=== PATIENT | male | born 1980 | race Caucasian/White ===

== ENCOUNTER 2017-07-12 08:05 | Inpatient (IN) | payer OTHER ==
[2017-07-12] MEDS ORDERED: NACL 0.9% 3 ML SYG IV (10:00)
[2017-07-12] MEDS ORDERED: LORAZEPAM 1 MG TAB PO (10:00)
[2017-07-12] MEDS ORDERED: AL HYDROX/MG HYDROX/SIMETH 30 ML CUP PO (10:00)
[2017-07-12] MEDS ORDERED: LORAZEPAM 2 MG INJ IV ×2 (10:00)
[2017-07-12] MEDS ORDERED: ONDANSETRON 4 MG TAB PO (10:00)
[2017-07-12 11:46] LABS: ETHANOL < 10.0 mg/dl
[2017-07-12] MEDS: CHLORDIAZEPOXIDE 25 MG CAP PO ×2 (12:37→17:26)
[2017-07-12] MEDS: HYDROCODONE/APAP (5/325) TAB PO ×2 (13:41→22:18)
[2017-07-12] MEDS: ONDANSETRON 4 MG INJ IV ×2 (13:41→20:22)
[2017-07-12] MEDS: LORAZEPAM 2 MG INJ IV ×2 (13:42→20:22)
[2017-07-12] MEDS: METOCLOPRAMIDE 10 MG INJ IV (15:25)
[2017-07-12] MEDS: THIAMINE 200 MG INJ IM (15:26)
[2017-07-12] MEDS: SOD CHLORIDE 0.9% 1,000 ML IV (15:46)
[2017-07-12] MEDS: PANTOPRAZOLE (EC) 40 MG TAB PO (17:26)
[2017-07-13] MEDS: LORAZEPAM 2 MG INJ IV ×3 (00:45→15:52)
[2017-07-13] MEDS: CHLORDIAZEPOXIDE 25 MG CAP PO ×4 (00:45→18:05)
[2017-07-13] MEDS: SOD CHLORIDE 0.9% 1,000 ML IV ×2 (02:14→06:15)
[2017-07-13] MEDS: PANTOPRAZOLE (EC) 40 MG TAB PO ×2 (06:15→18:05)
[2017-07-13 07:08] LABS: ADD MAN DIFF? NO
[2017-07-13 07:22] LABS: BASOPHILS % 0.2 % (0.0-2.0); EOSINOPHILS % 0.5 % (0.0-7.0); HEMATOCRIT 44.9 % (42.0-52.0); HEMOGLOBIN 15.5 g/dl (14.0-18.0); LYMPHOCYTES # 0.9 10^3/ul (0.8-2.9); LYMPHOCYTES % 20.9 % (15.0-51.0); MEAN CORPUSCULAR HGB CONC 34.5 g/dl (32.0-37.0); MEAN CORPUSCULAR VOLUME 92.8 fl (82.0-101.0); MEAN PLATELET VOLUME 11.4 fl (7.4-10.4); MONOCYTE # 0.4 10^3/ul (0.3-0.9); MONOCYTES % 9.3 % (0.0-11.0); NEUTROPHILS % 68.6 % (39.0-77.0); PLATELET COUNT 143 10^3/UL (140-415); RED BLOOD COUNT 4.84 10^6/ul (4.70-6.10); RED CELL DISTRIBUTION WIDTH 12.3 % (11.5-14.5)
[2017-07-13 07:22] LABS: WHITE BLOOD COUNT 4.3 10^3/ul (4.8-10.8)
[2017-07-13 07:47] LABS: ANION GAP 13 (8-16); BLOOD UREA NITROGEN 11 mg/dl (7-20); CALCIUM 8.5 mg/dl (8.4-10.2); CARBON DIOXIDE 26 mmol/L (21-31); CHLORIDE 99 mmol/L (97-110); CREATININE 0.54 mg/dl (0.61-1.24); GLUCOSE 87 mg/dl (70-220); MAGNESIUM 1.8 mg/dl (1.7-2.5); PHOSPHORUS 2.9 mg/dl (2.5-4.9); POTASSIUM 3.3 mmol/L (3.5-5.1); SODIUM 135 mmol/L (135-144)
[2017-07-13] MEDS: ENOXAPARIN 40 MG/0.4 ML SYG SC (09:00)
[2017-07-13] MEDS: LORAZEPAM 1 MG TAB PO (09:35)
[2017-07-13] MEDS: POTASSIUM CHLORIDE (SR) 20 MEQ TAB PO (09:35)
[2017-07-13] MEDS: MULTIVITAMINS THERAPEUTIC TAB PO (09:35)
[2017-07-13] MEDS: METOCLOPRAMIDE 10 MG INJ IV ×2 (09:35→15:39)
[2017-07-13] MEDS: HYDROCODONE/APAP (5/325) TAB PO (09:36)
[2017-07-13] MEDS: FOLIC ACID 1 MG TAB PO (09:37)
[2017-07-13] MEDS: THIAMINE 200 MG INJ IM (09:37)
[2017-07-13] MEDS: ONDANSETRON 4 MG INJ IV ×2 (13:07→18:05)
== END 2017-07-13 19:15 | disposition home or self-care (01) | DRG 897 ==
LOC: PP2 08:05 → MS4 12:50
PROVIDERS: Internal Medicine
DX: F10.239 Alcohol dependence with withdrawal, unspecified (principal); K29.20 Alcoholic gastritis without bleeding
CPT/HCPCS: 80048; 80306; 83735; 84100; 85025

== ENCOUNTER 2017-09-11 10:42 | Emergency (ER) | payer OTHER ==
[2017-09-11] MEDS: ONDANSETRON (ODT) 4 MG TAB ODT (11:08)
[2017-09-11] MEDS: LORAZEPAM 1 MG TAB PO (11:09)
== END 2017-09-11 11:30 | disposition home or self-care (01) ==
LOC: FTE 10:42
DX: F10.230 Alcohol dependence with withdrawal, uncomplicated (principal)
CPT/HCPCS: 99284; Z7502

== ENCOUNTER 2017-09-15 08:49 | Emergency (ER) | payer OTHER ==
[2017-09-15] MEDS: LORAZEPAM 1 MG TAB PO ×2 (10:22→19:12)
[2017-09-15 10:23] LABS: ADD MAN DIFF? NO
[2017-09-15 10:37] LABS: WHITE BLOOD COUNT 6.4 10^3/ul (4.8-10.8)
[2017-09-15 10:37] LABS: BASOPHILS % 0.2 % (0.0-2.0); EOSINOPHILS % 0.2 % (0.0-7.0); HEMATOCRIT 52.7 % (42.0-52.0); HEMOGLOBIN 17.8 g/dl (14.0-18.0); LYMPHOCYTES # 2.9 10^3/ul (0.8-2.9); LYMPHOCYTES % 44.9 % (15.0-51.0); MEAN CORPUSCULAR HEMOGLOBIN 31.2 pg (29.0-33.0); MEAN CORPUSCULAR HGB CONC 33.8 g/dl (32.0-37.0); MEAN CORPUSCULAR VOLUME 92.3 fl (82.0-101.0); MONOCYTE # 0.4 10^3/ul (0.3-0.9); MONOCYTES % 5.9 % (0.0-11.0); NEUTROPHIL # 3.1 10^3/ul (1.6-7.5); NEUTROPHILS % 48.6 % (39.0-77.0); PLATELET COUNT 255 10^3/UL (140-415); RED BLOOD COUNT 5.71 10^6/ul (4.70-6.10); RED CELL DISTRIBUTION WIDTH 13.3 % (11.5-14.5)
[2017-09-15 10:52] LABS: ALANINE AMINOTRANSFERASE 52 IU/L (13-69); ALBUMIN 4.9 g/dl (3.3-4.9); ALBUMIN/GLOBULIN RATIO 1.63; ALKALINE PHOSPHATASE 81 IU/L (42-121); ANION GAP 18 (8-16); ASPARTATE AMINO TRANSFERASE 34 IU/L (15-46); BILIRUBIN,INDIRECT 0.9 mg/dl (0-1.1); BILIRUBIN,TOTAL 0.9 mg/dl (0.2-1.3); BLOOD UREA NITROGEN 5 mg/dl (7-20); CARBON DIOXIDE 24 mmol/L (21-31); CHLORIDE 105 mmol/L (97-110); CREATININE 0.55 mg/dl (0.61-1.24); GLUCOSE 114 mg/dl (70-220); POTASSIUM 4.1 mmol/L (3.5-5.1); SODIUM 143 mmol/L (135-144); TOTAL PROTEIN 7.9 g/dl (6.1-8.1)
[2017-09-15 10:54] LABS: ACETAMINOPHEN < 10.0 ug/ml (10.0-30.0); SALICYLATE < 1.0 mg/dl (5.0-30.0)
[2017-09-15 11:02] LABS: AMPHETAMINE/METHAMPHETAMINE Negative (NEGATIVE); BARBITURATES Negative (NEGATIVE); BENZODIAZEPINES Positive (NEGATIVE); CANNABINOIDS Positive (NEGATIVE); COCAINE Negative (NEGATIVE); OPIATES Negative (NEGATIVE)
[2017-09-15] MEDS: LORAZEPAM 2 MG INJ IM (12:09)
[2017-09-15] MEDS: LORAZEPAM 2 MG INJ IV (14:26)
== END 2017-09-15 20:50 | disposition home or self-care (01) ==
LOC: E/R 20:50
DX: F10.120 Alcohol abuse with intoxication, uncomplicated (principal); R45.851 Suicidal ideations; F32.9 Major depressive disorder, single episode, unspecified
CPT/HCPCS: 36415; 80053; 80307; 85025; 96372; 96374; 99284-25

== ENCOUNTER 2017-10-09 04:09 | Emergency (ER) | payer OTHER ==
[2017-10-09] MEDS: LORAZEPAM 1 MG TAB PO (06:12)
== END 2017-10-09 06:51 | disposition home or self-care (01) ==
LOC: E/R 04:09
DX: F10.10 Alcohol abuse, uncomplicated (principal); R40.2142 Coma scale, eyes open, spontaneous, at arrival to emergency department; R40.2362 Coma scale, best motor response, obeys commands, at arrival to emergency department; R40.2252 Coma scale, best verbal response, oriented, at arrival to emergency department
CPT/HCPCS: 99284; Z7502

== ENCOUNTER 2017-10-30 03:17 | Emergency (ER) | payer OTHER | END 2017-10-30 04:12 | disposition home or self-care (01) | LOC: FTE 03:17 | DX: F41.9 Anxiety disorder, unspecified (principal) | CPT/HCPCS: 99283; Z7502 ==

== ENCOUNTER 2017-11-29 14:10 | Emergency (ER) | payer OTHER ==
[2017-11-29] MEDS: LORAZEPAM 1 MG TAB PO (16:27)
== END 2017-11-29 16:37 | disposition home or self-care (01) ==
LOC: E/R 14:10
DX: F10.230 Alcohol dependence with withdrawal, uncomplicated (principal)
CPT/HCPCS: 99283; Z7502

== ENCOUNTER 2017-12-15 19:36 | Emergency (ER) | payer SELFPAY, OTHER | END 2017-12-15 21:57 | disposition left against medical advice (07) | LOC: FTE 21:57 | DX: Z53.21 Procedure and treatment not carried out due to patient leaving prior to being seen by health care provider (principal) ==

== ENCOUNTER 2017-12-16 04:03 | Emergency (ER) | payer OTHER ==
[2017-12-16 04:40] LABS: ADD MAN DIFF? NO
[2017-12-16 04:41] LABS: BASOPHILS % 0.2 % (0.0-2.0); EOSINOPHILS % 0.2 % (0.0-7.0); HEMATOCRIT 47.6 % (42.0-52.0); HEMOGLOBIN 16.1 g/dl (14.0-18.0); LYMPHOCYTES # 1.6 10^3/ul (0.8-2.9); LYMPHOCYTES % 28.6 % (15.0-51.0); MEAN CORPUSCULAR HEMOGLOBIN 32.9 pg (29.0-33.0); MEAN CORPUSCULAR HGB CONC 33.8 g/dl (32.0-37.0); MEAN CORPUSCULAR VOLUME 97.1 fl (82.0-101.0); MEAN PLATELET VOLUME 10.3 fl (7.4-10.4); MONOCYTE # 0.3 10^3/ul (0.3-0.9); MONOCYTES % 6.2 % (0.0-11.0); NEUTROPHIL # 3.5 10^3/ul (1.6-7.5); NEUTROPHILS % 64.6 % (39.0-77.0); PLATELET COUNT 207 10^3/UL (140-415); RED CELL DISTRIBUTION WIDTH 12.5 % (11.5-14.5)
[2017-12-16 04:41] LABS: WHITE BLOOD COUNT 5.5 10^3/ul (4.8-10.8)
[2017-12-16] MEDS: ONDANSETRON 4 MG INJ IV (04:42)
[2017-12-16] MEDS: SOD CHLORIDE 0.9% 1,000 ML IV (04:42)
[2017-12-16] MEDS: morphine 4 MG/ML VIAL IV (04:42)
[2017-12-16 04:58] LABS: ALANINE AMINOTRANSFERASE 71 IU/L (13-69); ALBUMIN 4.5 g/dl (3.3-4.9); ALKALINE PHOSPHATASE 55 IU/L (42-121); ANION GAP 15 (8-16); ASPARTATE AMINO TRANSFERASE 94 IU/L (15-46); BILIRUBIN,INDIRECT 1.4 mg/dl (0-1.1); BILIRUBIN,TOTAL 1.4 mg/dl (0.2-1.3); BLOOD UREA NITROGEN 5 mg/dl (7-20); CALCIUM 8.5 mg/dl (8.4-10.2); CARBON DIOXIDE 27 mmol/L (21-31); CHLORIDE 104 mmol/L (97-110); CREATININE 0.48 mg/dl (0.61-1.24); GLUCOSE 95 mg/dl (70-220); LIPASE 108 U/L (23-300); POTASSIUM 4.1 mmol/L (3.5-5.1); SODIUM 142 mmol/L (135-144); TOTAL PROTEIN 7.5 g/dl (6.1-8.1)
[2017-12-16] MEDS ORDERED: LORAZEPAM 2 MG INJ (05:01)
[2017-12-16] MEDS: LORAZEPAM 2 MG INJ IV (05:05)
== END 2017-12-16 07:45 | disposition home or self-care (01) ==
LOC: E/R 04:03
DX: R10.13 Epigastric pain (principal)
CPT/HCPCS: 36415; 76705; 80053; 83690; 85025; 96374; 96375; 99285-25

== ENCOUNTER 2018-03-01 19:42 | Emergency (ER) | payer SELFPAY, OTHER | END 2018-03-01 20:30 | disposition left against medical advice (07) | LOC: E/R 19:42 | DX: Z53.21 Procedure and treatment not carried out due to patient leaving prior to being seen by health care provider (principal) ==

== ENCOUNTER 2018-03-02 08:23 | Emergency (ER) | payer OTHER ==
[2018-03-02] MEDS: SOD CHLORIDE 0.9% 1,000 ML IV (09:26)
[2018-03-02] MEDS: LORAZEPAM 2 MG INJ IV (09:36)
[2018-03-02 09:45] LABS: ADD MAN DIFF? NO
[2018-03-02 09:48] LABS: WHITE BLOOD COUNT 4.4 10^3/ul (4.8-10.8)
[2018-03-02 09:48] LABS: BASOPHILS % 0.5 % (0.0-2.0); EOSINOPHILS % 0.2 % (0.0-7.0); HEMATOCRIT 47.6 % (42.0-52.0); LYMPHOCYTES # 1.1 10^3/ul (0.8-2.9); LYMPHOCYTES % 23.9 % (15.0-51.0); MEAN CORPUSCULAR HEMOGLOBIN 33.1 pg (29.0-33.0); MEAN CORPUSCULAR HGB CONC 33.6 g/dl (32.0-37.0); MEAN CORPUSCULAR VOLUME 98.6 fl (82.0-101.0); MONOCYTE # 0.3 10^3/ul (0.3-0.9); NEUTROPHILS % 68.2 % (39.0-77.0); PLATELET COUNT 242 10^3/UL (140-415); RED BLOOD COUNT 4.83 10^6/ul (4.70-6.10); RED CELL DISTRIBUTION WIDTH 12.6 % (11.5-14.5)
[2018-03-02 09:49] LABS: ADD UMIC NO; UR ASCORBIC ACID NEGATIVE (NEGATIVE); UR BILIRUBIN (Dip) NEGATIVE (NEGATIVE); UR BLOOD (Dip) NEGATIVE (NEGATIVE); UR CLARITY CLEAR (CLEAR); UR COLOR YELLOW (YELLOW); UR GLUCOSE (Dip) NEGATIVE (NEGATIVE); UR KETONES (Dip) 2+ mg/dL (NEGATIVE); UR LEUKOCYTE ESTERASE (Dip) NEGATIVE Leu/ul (NEGATIVE); UR NITRITE (Dip) NEGATIVE (NEGATIVE); UR SPECIFIC GRAVITY (Dip) 1.014 (1.003-1.030); UR TOTAL PROTEIN (Dip) NEGATIVE (NEGATIVE); UR UROBILINOGEN (Dip) 1+ mg/dL (NEGATIVE)
[2018-03-02 10:17] LABS: ALANINE AMINOTRANSFERASE 42 IU/L (13-69); ALBUMIN 4.6 g/dl (3.3-4.9); ALBUMIN/GLOBULIN RATIO 1.48; ALKALINE PHOSPHATASE 73 IU/L (42-121); ANION GAP 18 (5-13); ASPARTATE AMINO TRANSFERASE 46 IU/L (15-46); BILIRUBIN,INDIRECT 1.1 mg/dl (0-1.1); BILIRUBIN,TOTAL 1.1 mg/dl (0.2-1.3); BLOOD UREA NITROGEN 4 mg/dl (7-20); CALCIUM 8.5 mg/dl (8.4-10.2); CARBON DIOXIDE 22 mmol/L (21-31); CHLORIDE 101 mmol/L (97-110); CREATININE 0.46 mg/dl (0.61-1.24); Estimated GFR > 60 mL/min (>60); GLUCOSE 98 mg/dl (70-220); LIPASE 70 U/L (23-300); POTASSIUM 3.4 mmol/L (3.5-5.1); SODIUM 141 mmol/L (135-144); TOTAL PROTEIN 7.7 g/dl (6.1-8.1)
== END 2018-03-02 11:01 | disposition home or self-care (01) ==
LOC: E/R 08:23
DX: F10.230 Alcohol dependence with withdrawal, uncomplicated (principal); R10.11 Right upper quadrant pain
CPT/HCPCS: 36415; 80053; 81003; 83690; 85025; 93005; 96374; 99284-25

== ENCOUNTER 2018-03-03 10:05 | Emergency (ER) | payer OTHER ==
[2018-03-03] MEDS: LORAZEPAM 1 MG TAB PO (10:55)
[2018-03-03] MEDS: CHLORDIAZEPOXIDE 25 MG CAP PO (11:02)
[2018-03-03] MEDS: LIDOCAINE/MYLANTA 40 ML BTL PO (11:02)
== END 2018-03-03 11:34 | disposition home or self-care (01) ==
LOC: E/R 10:05
DX: F10.239 Alcohol dependence with withdrawal, unspecified (principal)
CPT/HCPCS: 87400; 93005; 99284-25

== ENCOUNTER 2018-05-01 05:47 | Emergency (ER) | payer OTHER ==
[2018-05-01] MEDS: LORAZEPAM 1 MG TAB PO (06:38)
== END 2018-05-01 07:47 | disposition left against medical advice (07) ==
LOC: FTE 05:47
DX: F41.9 Anxiety disorder, unspecified (principal); F10.10 Alcohol abuse, uncomplicated; R06.02 Shortness of breath
CPT/HCPCS: 93005; 99283-25; Z7502

== ENCOUNTER 2018-05-04 12:02 | Emergency (ER) | payer OTHER ==
[2018-05-04 13:11] LABS: ADD MAN DIFF? NO
[2018-05-04 13:13] LABS: WHITE BLOOD COUNT 5.7 10^3/ul (4.8-10.8)
[2018-05-04 13:13] LABS: BASOPHILS % 0.2 % (0.0-2.0); HEMATOCRIT 49.5 % (42.0-52.0); HEMOGLOBIN 16.9 g/dl (14.0-18.0); LYMPHOCYTES # 1.3 10^3/ul (0.8-2.9); MEAN CORPUSCULAR HEMOGLOBIN 33.1 pg (29.0-33.0); MEAN CORPUSCULAR HGB CONC 34.1 g/dl (32.0-37.0); MEAN CORPUSCULAR VOLUME 96.9 fl (82.0-101.0); MEAN PLATELET VOLUME 10.4 fl (7.4-10.4); MONOCYTE # 0.3 10^3/ul (0.3-0.9); MONOCYTES % 4.8 % (0.0-11.0); NEUTROPHIL # 4.1 10^3/ul (1.6-7.5); NEUTROPHILS % 71.6 % (39.0-77.0); PLATELET COUNT 234 10^3/UL (140-415); RED BLOOD COUNT 5.11 10^6/ul (4.70-6.10); RED CELL DISTRIBUTION WIDTH 12.7 % (11.5-14.5)
[2018-05-04] MEDS: ONDANSETRON 4 MG INJ IV (13:18)
[2018-05-04] MEDS: morphine 2 MG INJ IV (13:19)
[2018-05-04 13:27] LABS: URINE BLOOD (Dip) POC Trace-intact (NEGATIVE); URINE GLUCOSE (Dip) POC Negative (NEGATIVE); URINE KETONES (Dip) POC 3+ (NEGATIVE); URINE LEUKOCYTE EST (Dip) POC Negative (NEGATIVE); URINE NITRITE (Dip) POC Negative (NEGATIVE); URINE TOTAL PROTEIN POC 1+ (NEGATIVE)
[2018-05-04 13:31] LABS: ALANINE AMINOTRANSFERASE 47 IU/L (13-69); ALBUMIN 4.9 g/dl (3.3-4.9); ALBUMIN/GLOBULIN RATIO 1.44; ALKALINE PHOSPHATASE 75 IU/L (42-121); ANION GAP 13 (5-13); ASPARTATE AMINO TRANSFERASE 43 IU/L (15-46); BILIRUBIN,INDIRECT 0.5 mg/dl (0-1.1); BILIRUBIN,TOTAL 0.5 mg/dl (0.2-1.3); BLOOD UREA NITROGEN 8 mg/dl (7-20); CALCIUM 9.4 mg/dl (8.4-10.2); CARBON DIOXIDE 24 mmol/L (21-31); CHLORIDE 103 mmol/L (97-110); CREATININE 0.52 mg/dl (0.61-1.24); Estimated GFR > 60 mL/min (>60); GLUCOSE 107 mg/dl (70-220); LIPASE 84 U/L (23-300); POTASSIUM 3.7 mmol/L (3.5-5.1); SODIUM 140 mmol/L (135-144); TOTAL PROTEIN 8.3 g/dl (6.1-8.1)
[2018-05-04] MEDS: SOD CHLORIDE 0.9% 1,000 ML IV (13:31)
[2018-05-04 13:32] LABS: INR 0.87; PROTIME 11.9 Sec (11.9-14.9); PT RATIO 0.9
[2018-05-04 13:33] LABS: PARTIAL THROMBOPLASTIN TIME 27.8 Sec (23.0-35.0)
[2018-05-04] MEDS ORDERED: LORAZEPAM 2 MG INJ (13:48)
[2018-05-04] MEDS: LORAZEPAM 2 MG INJ IV ×2 (14:17→15:44)
== END 2018-05-04 16:38 | disposition home or self-care (01) ==
LOC: E/R 12:02
DX: R10.11 Right upper quadrant pain (principal); F10.10 Alcohol abuse, uncomplicated
CPT/HCPCS: 36415; 80053; 80307; 81003; 83690; 85025; 85610; 85730; 96374; 96375; 96376; 99284-25

== ENCOUNTER 2018-05-28 05:33 | Emergency (ER) | payer OTHER ==
[2018-05-28 07:11] LABS: ADD MAN DIFF? NO
[2018-05-28 07:13] LABS: WHITE BLOOD COUNT 6.6 10^3/ul (4.8-10.8)
[2018-05-28 07:13] LABS: BASOPHILS % 0.3 % (0.0-2.0); HEMOGLOBIN 18.4 g/dl (14.0-18.0); LYMPHOCYTES # 1.9 10^3/ul (0.8-2.9); LYMPHOCYTES % 29.1 % (15.0-51.0); MEAN CORPUSCULAR HEMOGLOBIN 33.2 pg (29.0-33.0); MEAN CORPUSCULAR HGB CONC 34.1 g/dl (32.0-37.0); MEAN CORPUSCULAR VOLUME 97.3 fl (82.0-101.0); MEAN PLATELET VOLUME 11.1 fl (7.4-10.4); MONOCYTE # 0.4 10^3/ul (0.3-0.9); MONOCYTES % 6.7 % (0.0-11.0); NEUTROPHIL # 4.2 10^3/ul (1.6-7.5); NEUTROPHILS % 63.6 % (39.0-77.0); PLATELET COUNT 267 10^3/UL (140-415); RED BLOOD COUNT 5.55 10^6/ul (4.70-6.10); RED CELL DISTRIBUTION WIDTH 12.7 % (11.5-14.5)
[2018-05-28 07:34] LABS: ALANINE AMINOTRANSFERASE 46 IU/L (13-69); ALBUMIN 5.1 g/dl (3.3-4.9); ALBUMIN/GLOBULIN RATIO 1.45; ALKALINE PHOSPHATASE 76 IU/L (42-121); ANION GAP 21 (5-13); ASPARTATE AMINO TRANSFERASE 43 IU/L (15-46); BILIRUBIN,INDIRECT 0.7 mg/dl (0-1.1); BILIRUBIN,TOTAL 0.7 mg/dl (0.2-1.3); BLOOD UREA NITROGEN 12 mg/dl (7-20); CALCIUM 9.4 mg/dl (8.4-10.2); CARBON DIOXIDE 25 mmol/L (21-31); CHLORIDE 99 mmol/L (97-110); CREATININE 0.67 mg/dl (0.61-1.24); Estimated GFR > 60 mL/min (>60); GLUCOSE 96 mg/dl (70-220); LIPASE 68 U/L (23-300); POTASSIUM 4.2 mmol/L (3.5-5.1); SODIUM 145 mmol/L (135-144); TOTAL PROTEIN 8.6 g/dl (6.1-8.1)
[2018-05-28] MEDS: SOD CHLORIDE 0.9% 1,000 ML IV (07:41)
[2018-05-28] MEDS: ONDANSETRON 4 MG INJ IV (07:42)
[2018-05-28] MEDS: morphine 4 MG/ML VIAL IV (07:42)
[2018-05-28] MEDS: LORAZEPAM 1 MG TAB PO (08:06)
[2018-05-28 08:07] LABS: ADD UMIC YES; UR ASCORBIC ACID NEGATIVE (NEGATIVE); UR BILIRUBIN (Dip) NEGATIVE (NEGATIVE); UR BLOOD (Dip) NEGATIVE (NEGATIVE); UR CLARITY CLEAR (CLEAR); UR COLOR YELLOW (YELLOW); UR GLUCOSE (Dip) NEGATIVE (NEGATIVE); UR KETONES (Dip) 2+ mg/dL (NEGATIVE); UR LEUKOCYTE ESTERASE (Dip) NEGATIVE Leu/ul (NEGATIVE); UR NITRITE (Dip) NEGATIVE (NEGATIVE); UR RBC 1 /HPF (0-5); UR TOTAL PROTEIN (Dip) 1+ mg/dl (NEGATIVE); UR UROBILINOGEN (Dip) NEGATIVE (NEGATIVE); UR WBC 0 /HPF (0-5)
[2018-05-28] MEDS: morphine 2 MG INJ IV (08:26)
== END 2018-05-28 08:43 | disposition home or self-care (01) ==
LOC: FTE 08:43
DX: F10.10 Alcohol abuse, uncomplicated (principal)
CPT/HCPCS: 36415; 76705; 80053; 81001; 83690; 85025; 96361; 96374; 96375; 96376; 99285-25

== ENCOUNTER 2018-05-30 01:26 | Emergency (ER) | payer SELFPAY, OTHER | END 2018-05-30 02:51 | disposition left against medical advice (07) | LOC: FTE 01:26 | DX: Z53.21 Procedure and treatment not carried out due to patient leaving prior to being seen by health care provider (principal) ==

== ENCOUNTER 2018-07-05 04:03 | Emergency (ER) | payer OTHER ==
[2018-07-05 06:41] LABS: ADD MAN DIFF? NO
[2018-07-05 06:50] LABS: WHITE BLOOD COUNT 6.3 10^3/ul (4.8-10.8)
[2018-07-05 06:50] LABS: BASOPHILS % 0.2 % (0.0-2.0); EOSINOPHILS % 0.2 % (0.0-7.0); HEMATOCRIT 52.2 % (42.0-52.0); LYMPHOCYTES # 2.9 10^3/ul (0.8-2.9); LYMPHOCYTES % 46.9 % (15.0-51.0); MEAN CORPUSCULAR HEMOGLOBIN 33.1 pg (29.0-33.0); MEAN CORPUSCULAR HGB CONC 34.5 g/dl (32.0-37.0); MEAN PLATELET VOLUME 10.7 fl (7.4-10.4); MONOCYTE # 0.5 10^3/ul (0.3-0.9); MONOCYTES % 8.3 % (0.0-11.0); NEUTROPHIL # 2.8 10^3/ul (1.6-7.5); NEUTROPHILS % 44.1 % (39.0-77.0); PLATELET COUNT 236 10^3/UL (140-415); RED BLOOD COUNT 5.44 10^6/ul (4.70-6.10); RED CELL DISTRIBUTION WIDTH 12.2 % (11.5-14.5)
[2018-07-05] MEDS: LORAZEPAM 1 MG TAB PO (06:50)
[2018-07-05] MEDS: KETOROLAC 15 MG INJ IV (06:50)
[2018-07-05] MEDS: SOD CHLORIDE 0.9% 1,000 ML IV (06:50)
[2018-07-05] MEDS: ONDANSETRON 4 MG INJ IV (06:50)
[2018-07-05 06:53] LABS: ADD UMIC YES; UR ASCORBIC ACID 40 mg/dL (NEGATIVE); UR BACTERIA FEW /HPF (NONE SEEN); UR BILIRUBIN (Dip) 1+ mg/dL (NEGATIVE); UR BLOOD (Dip) NEGATIVE (NEGATIVE); UR CLARITY CLEAR (CLEAR); UR COLOR AMBER (YELLOW); UR GLUCOSE (Dip) NEGATIVE (NEGATIVE); UR KETONES (Dip) 2+ mg/dL (NEGATIVE); UR LEUKOCYTE ESTERASE (Dip) TRACE Leu/ul (NEGATIVE); UR MUCUS MANY /HPF (NONE SEEN); UR NITRITE (Dip) NEGATIVE (NEGATIVE); UR RBC 3 /HPF (0-5); UR SPECIFIC GRAVITY (Dip) 1.032 (1.003-1.030); UR TOTAL PROTEIN (Dip) 1+ mg/dl (NEGATIVE); UR UROBILINOGEN (Dip) 2+ mg/dL (NEGATIVE); UR WBC 1 /HPF (0-5)
[2018-07-05 07:00] LABS: LIPASE 115 U/L (23-300)
[2018-07-05 07:02] LABS: ALANINE AMINOTRANSFERASE 44 IU/L (13-69); ALBUMIN 4.9 g/dl (3.3-4.9); ALBUMIN/GLOBULIN RATIO 1.36; ALKALINE PHOSPHATASE 80 IU/L (42-121); ANION GAP 16 (5-13); ASPARTATE AMINO TRANSFERASE 34 IU/L (15-46); BILIRUBIN,INDIRECT 0.4 mg/dl (0-1.1); BILIRUBIN,TOTAL 0.4 mg/dl (0.2-1.3); BLOOD UREA NITROGEN 8 mg/dl (7-20); CALCIUM 9.8 mg/dl (8.4-10.2); CARBON DIOXIDE 25 mmol/L (21-31); CHLORIDE 104 mmol/L (97-110); CREATININE 0.62 mg/dl (0.61-1.24); Estimated GFR > 60 mL/min (>60); GLUCOSE 104 mg/dl (70-220); POTASSIUM 3.7 mmol/L (3.5-5.1); SODIUM 145 mmol/L (135-144); TOTAL PROTEIN 8.5 g/dl (6.1-8.1)
[2018-07-05 07:03] LABS: ACETAMINOPHEN < 10.0 ug/ml (10.0-30.0)
[2018-07-05] MEDS: OXYCODONE/ACETAMINOPHEN (5/325) TAB PO (07:30)
[2018-07-05 07:54] LABS: AMPHETAMINE/METHAMPHETAMINE Negative (NEGATIVE); BARBITURATES Negative (NEGATIVE); BENZODIAZEPINES Positive (NEGATIVE); CANNABINOIDS Positive (NEGATIVE); COCAINE Negative (NEGATIVE); OPIATES Negative (NEGATIVE)
[2018-07-05 11:04] LABS: SALICYLATE < 1.0 mg/dl (5.0-30.0)
== END 2018-07-05 09:02 | disposition home or self-care (01) ==
LOC: E/R 04:03
DX: F10.230 Alcohol dependence with withdrawal, uncomplicated (principal); R10.13 Epigastric pain
CPT/HCPCS: 36415; 80053; 80307; 81001; 83690; 85025; 93005; 96374; 96375; 99284-25

== ENCOUNTER 2018-07-07 05:15 | Emergency (ER) | payer OTHER ==
[2018-07-07] MEDS: ONDANSETRON 4 MG INJ IV (06:41)
[2018-07-07] MEDS: SOD CHLORIDE 0.9% 1,000 ML IV (06:41)
[2018-07-07] MEDS: LORAZEPAM 2 MG INJ IV (06:42)
[2018-07-07] MEDS: morphine 4 MG/ML VIAL IV (06:42)
[2018-07-07] MEDS: KETOROLAC 30 MG INJ IV (06:42)
[2018-07-07 06:53] LABS: ADD MAN DIFF? NO
[2018-07-07 06:56] LABS: BASOPHILS % 0.4 % (0.0-2.0); HEMOGLOBIN 17.9 g/dl (14.0-18.0); LYMPHOCYTES # 3.1 10^3/ul (0.8-2.9); LYMPHOCYTES % 54.6 % (15.0-51.0); MEAN CORPUSCULAR HEMOGLOBIN 33.3 pg (29.0-33.0); MEAN CORPUSCULAR HGB CONC 34.4 g/dl (32.0-37.0); MEAN CORPUSCULAR VOLUME 96.8 fl (82.0-101.0); MEAN PLATELET VOLUME 10.4 fl (7.4-10.4); MONOCYTE # 0.4 10^3/ul (0.3-0.9); MONOCYTES % 6.9 % (0.0-11.0); NEUTROPHIL # 2.2 10^3/ul (1.6-7.5); NEUTROPHILS % 37.7 % (39.0-77.0); PLATELET COUNT 242 10^3/UL (140-415); RED BLOOD COUNT 5.37 10^6/ul (4.70-6.10); RED CELL DISTRIBUTION WIDTH 12.2 % (11.5-14.5)
[2018-07-07 06:56] LABS: WHITE BLOOD COUNT 5.7 10^3/ul (4.8-10.8)
[2018-07-07 07:04] LABS: ADD UMIC YES; UR ASCORBIC ACID NEGATIVE (NEGATIVE); UR BILIRUBIN (Dip) NEGATIVE (NEGATIVE); UR BLOOD (Dip) 1+ mg/dL (NEGATIVE); UR CLARITY CLEAR (CLEAR); UR COLOR YELLOW (YELLOW); UR GLUCOSE (Dip) NEGATIVE (NEGATIVE); UR KETONES (Dip) TRACE mg/dL (NEGATIVE); UR LEUKOCYTE ESTERASE (Dip) NEGATIVE Leu/ul (NEGATIVE); UR MUCUS MODERATE /HPF (NONE SEEN); UR NITRITE (Dip) NEGATIVE (NEGATIVE); UR RBC 1 /HPF (0-5); UR SPECIFIC GRAVITY (Dip) 1.019 (1.003-1.030); UR TOTAL PROTEIN (Dip) NEGATIVE (NEGATIVE); UR UROBILINOGEN (Dip) NEGATIVE (NEGATIVE); UR WBC 0 /HPF (0-5)
[2018-07-07] MEDS: morphine 2 MG INJ IV (07:08)
[2018-07-07 07:11] LABS: ALANINE AMINOTRANSFERASE 49 IU/L (13-69); ALBUMIN 4.9 g/dl (3.3-4.9); ALBUMIN/GLOBULIN RATIO 1.58; ALKALINE PHOSPHATASE 69 IU/L (42-121); ANION GAP 15 (5-13); ASPARTATE AMINO TRANSFERASE 37 IU/L (15-46); BILIRUBIN,INDIRECT 0.4 mg/dl (0-1.1); BILIRUBIN,TOTAL 0.4 mg/dl (0.2-1.3); BLOOD UREA NITROGEN 6 mg/dl (7-20); CALCIUM 9.4 mg/dl (8.4-10.2); CARBON DIOXIDE 28 mmol/L (21-31); CHLORIDE 103 mmol/L (97-110); CREATININE 0.61 mg/dl (0.61-1.24); Estimated GFR > 60 mL/min (>60); GLUCOSE 109 mg/dl (70-220); LIPASE 91 U/L (23-300); POTASSIUM 3.9 mmol/L (3.5-5.1); SODIUM 146 mmol/L (135-144)
[2018-07-07 08:19] LABS: LIPASE 120 U/L (23-300)
[2018-07-07 09:35] LABS: TROPONIN-I < 0.012 ng/ml (0.000-0.120)
[2018-07-07] MEDS: LORAZEPAM 0.5 MG TAB PO (09:52)
== END 2018-07-07 09:55 | disposition home or self-care (01) ==
LOC: FTE 05:15
DX: R10.13 Epigastric pain (principal); Z87.891 Personal history of nicotine dependence
CPT/HCPCS: 36415; 76705; 80053; 81001; 83690; 84484; 85025; 93005; 96361; 96374; 96375; 99285-25

== ENCOUNTER 2018-09-05 12:12 | Emergency (ER) | payer OTHER ==
[2018-09-05 16:49] LABS: ADD MAN DIFF? NO
[2018-09-05 16:54] LABS: BASOPHILS % 0.2 % (0.0-2.0); HEMATOCRIT 48.8 % (42.0-52.0); HEMOGLOBIN 17.1 g/dl (14.0-18.0); MEAN CORPUSCULAR HEMOGLOBIN 33.6 pg (29.0-33.0); MEAN CORPUSCULAR VOLUME 95.9 fl (82.0-101.0); MEAN PLATELET VOLUME 10.2 fl (7.4-10.4); MONOCYTE # 0.5 10^3/ul (0.3-0.9); MONOCYTES % 8.8 % (0.0-11.0); NEUTROPHIL # 3.9 10^3/ul (1.6-7.5); NEUTROPHILS % 72.6 % (39.0-77.0); PLATELET COUNT 243 10^3/UL (140-415); RED BLOOD COUNT 5.09 10^6/ul (4.70-6.10); RED CELL DISTRIBUTION WIDTH 12.2 % (11.5-14.5)
[2018-09-05 16:54] LABS: WHITE BLOOD COUNT 5.4 10^3/ul (4.8-10.8)
[2018-09-05] MEDS: SOD CHLORIDE 0.9% 1,000 ML IV (17:04)
[2018-09-05] MEDS: morphine 4 MG/ML VIAL IV (17:04)
[2018-09-05] MEDS: FAMOTIDINE 20 MG INJ IV (17:04)
[2018-09-05] MEDS: ONDANSETRON 4 MG INJ IV (17:04)
[2018-09-05 17:11] LABS: ALANINE AMINOTRANSFERASE 57 IU/L (13-69); ALBUMIN 4.6 g/dl (3.3-4.9); ALBUMIN/GLOBULIN RATIO 1.39; ALKALINE PHOSPHATASE 63 IU/L (42-121); ANION GAP 17 (5-13); ASPARTATE AMINO TRANSFERASE 57 IU/L (15-46); BILIRUBIN,INDIRECT 0.7 mg/dl (0-1.1); BILIRUBIN,TOTAL 0.7 mg/dl (0.2-1.3); BLOOD UREA NITROGEN 10 mg/dl (7-20); CALCIUM 8.7 mg/dl (8.4-10.2); CARBON DIOXIDE 26 mmol/L (21-31); CHLORIDE 102 mmol/L (97-110); CREATININE 0.73 mg/dl (0.61-1.24); Estimated GFR > 60 mL/min (>60); GLUCOSE 133 mg/dl (70-220); LIPASE 142 U/L (23-300); POTASSIUM 3.4 mmol/L (3.5-5.1); SODIUM 145 mmol/L (135-144); TOTAL PROTEIN 7.9 g/dl (6.1-8.1)
[2018-09-05 17:22] LABS: TROPONIN-I < 0.012 ng/ml (0.000-0.120)
[2018-09-05] MEDS: LORAZEPAM 2 MG INJ IV (19:35)
== END 2018-09-05 21:43 | disposition home or self-care (01) ==
LOC: E/R 12:12
DX: K29.20 Alcoholic gastritis without bleeding (principal); F10.10 Alcohol abuse, uncomplicated
CPT/HCPCS: 36415; 71045; 76705; 80053; 83690; 84484; 85025; 93005; 96374; 96375; 99285-25

== ENCOUNTER 2018-09-11 11:12 | Emergency (ER) | payer OTHER ==
[2018-09-11 12:48] LABS: ADD MAN DIFF? NO
[2018-09-11 12:55] LABS: BASOPHILS % 0.3 % (0.0-2.0); HEMATOCRIT 46.4 % (42.0-52.0); LYMPHOCYTES % 30.7 % (15.0-51.0); MEAN CORPUSCULAR HEMOGLOBIN 33.8 pg (29.0-33.0); MEAN CORPUSCULAR HGB CONC 34.5 g/dl (32.0-37.0); MEAN CORPUSCULAR VOLUME 98.1 fl (82.0-101.0); MEAN PLATELET VOLUME 9.8 fl (7.4-10.4); MONOCYTE # 0.3 10^3/ul (0.3-0.9); MONOCYTES % 9.4 % (0.0-11.0); NEUTROPHIL # 1.9 10^3/ul (1.6-7.5); PLATELET COUNT 149 10^3/UL (140-415); RED BLOOD COUNT 4.73 10^6/ul (4.70-6.10); RED CELL DISTRIBUTION WIDTH 12.8 % (11.5-14.5)
[2018-09-11 12:55] LABS: WHITE BLOOD COUNT 3.3 10^3/ul (4.8-10.8)
[2018-09-11] MEDS: LORAZEPAM 2 MG INJ IV (13:00)
[2018-09-11] MEDS: SOD CHLORIDE 0.9% 1,000 ML IV (13:00)
[2018-09-11 13:12] LABS: ALANINE AMINOTRANSFERASE 86 IU/L (13-69); ALBUMIN 4.3 g/dl (3.3-4.9); ALBUMIN/GLOBULIN RATIO 1.48; ALKALINE PHOSPHATASE 60 IU/L (42-121); ANION GAP 15 (5-13); ASPARTATE AMINO TRANSFERASE 104 IU/L (15-46); BILIRUBIN,INDIRECT 0.8 mg/dl (0-1.1); BILIRUBIN,TOTAL 0.8 mg/dl (0.2-1.3); BLOOD UREA NITROGEN 4 mg/dl (7-20); CALCIUM 8.4 mg/dl (8.4-10.2); CARBON DIOXIDE 29 mmol/L (21-31); CHLORIDE 102 mmol/L (97-110); CREATININE 0.69 mg/dl (0.61-1.24); Estimated GFR > 60 mL/min (>60); GLUCOSE 106 mg/dl (70-220); LIPASE 159 U/L (23-300); POTASSIUM 3.4 mmol/L (3.5-5.1); SODIUM 146 mmol/L (135-144); TOTAL PROTEIN 7.2 g/dl (6.1-8.1)
[2018-09-11 13:16] LABS: INR 0.92; PARTIAL THROMBOPLASTIN TIME 28.6 Sec (23.0-35.0); PROTIME 12.5 Sec (11.9-14.9)
[2018-09-11 13:23] LABS: TROPONIN-I < 0.012 ng/ml (0.000-0.120)
[2018-09-11] MEDS: PANTOPRAZOLE IV 80 MG in SOD CHLORIDE 0.9% 100 ML IVPB (13:34)
[2018-09-11] MEDS: OCTREOTIDE 50 MCG in SOD CHLORIDE 0.9% 25 ML IVPB (13:53)
[2018-09-11] MEDS: OCTREOTIDE 500 MCG in SOD CHLORIDE 0.9% 49 ML IV (14:10)
== END 2018-09-11 16:30 | disposition home or self-care (01) ==
LOC: E/R 11:12
DX: F10.239 Alcohol dependence with withdrawal, unspecified (principal); Z87.891 Personal history of nicotine dependence
CPT/HCPCS: 36415; 71045; 80053; 82962; 83690; 84484; 85025; 85610; 85730; 86850; 86900; 86901; 93005; 96361; 96365; 96367; 96375; 96376; 99285-25

== ENCOUNTER 2018-10-21 04:36 | Emergency (ER) | payer OTHER ==
[2018-10-21] MEDS: ONDANSETRON 4 MG INJ IV (05:09)
[2018-10-21] MEDS: SOD CHLORIDE 0.9% 1,000 ML IV (05:09)
[2018-10-21 05:24] LABS: ADD MAN DIFF? NO
[2018-10-21 05:25] LABS: BASOPHILS % 0.1 % (0.0-2.0); HEMOGLOBIN 18.5 g/dl (14.0-18.0); LYMPHOCYTES # 2.1 10^3/ul (0.8-2.9); LYMPHOCYTES % 26.4 % (15.0-51.0); MEAN CORPUSCULAR HEMOGLOBIN 33.9 pg (29.0-33.0); MEAN CORPUSCULAR HGB CONC 34.3 g/dl (32.0-37.0); MEAN CORPUSCULAR VOLUME 99.1 fl (82.0-101.0); MEAN PLATELET VOLUME 11.3 fl (7.4-10.4); MONOCYTE # 0.3 10^3/ul (0.3-0.9); MONOCYTES % 3.7 % (0.0-11.0); NEUTROPHIL # 5.6 10^3/ul (1.6-7.5); NEUTROPHILS % 69.3 % (39.0-77.0); PLATELET COUNT 280 10^3/UL (140-415); RED BLOOD COUNT 5.45 10^6/ul (4.70-6.10); RED CELL DISTRIBUTION WIDTH 12.8 % (11.5-14.5)
[2018-10-21 05:47] LABS: ALANINE AMINOTRANSFERASE 34 IU/L (13-69); ALBUMIN 4.9 g/dl (3.3-4.9); ALBUMIN/GLOBULIN RATIO 1.32; ALKALINE PHOSPHATASE 101 IU/L (42-121); ANION GAP 16 (5-13); ASPARTATE AMINO TRANSFERASE 29 IU/L (15-46); BILIRUBIN,INDIRECT 0.5 mg/dl (0-1.1); BILIRUBIN,TOTAL 0.5 mg/dl (0.2-1.3); BLOOD UREA NITROGEN 7 mg/dl (7-20); CALCIUM 9.2 mg/dl (8.4-10.2); CARBON DIOXIDE 27 mmol/L (21-31); CHLORIDE 101 mmol/L (97-110); CREATININE 0.67 mg/dl (0.61-1.24); Estimated GFR > 60 mL/min (>60); GLUCOSE 123 mg/dl (70-220); SODIUM 144 mmol/L (135-144); TOTAL PROTEIN 8.6 g/dl (6.1-8.1)
[2018-10-21 05:57] LABS: ACETAMINOPHEN < 10.0 ug/ml (10.0-30.0); POTASSIUM 3.8 mmol/L (3.5-5.1); SALICYLATE < 1.0 mg/dl (5.0-30.0)
[2018-10-21] MEDS: CHLORDIAZEPOXIDE 5 MG CAP PO (06:35)
== END 2018-10-21 08:25 | disposition home or self-care (01) ==
LOC: E/R 08:25
DX: F10.129 Alcohol abuse with intoxication, unspecified (principal); F17.210 Nicotine dependence, cigarettes, uncomplicated
CPT/HCPCS: 36415; 80053; 80307; 85025; 96374; 99284-25

== ENCOUNTER 2018-10-24 01:08 | Inpatient (IN) | payer OTHER ==
[2018-10-24] MEDS ORDERED: NACL 0.9% 3 ML SYG IV (03:00)
[2018-10-24] MEDS: DEXTROSE 5%-0.45% NACL 1,000 ML IV ×4 (03:19→23:23)
[2018-10-24] MEDS: LORAZEPAM 2 MG INJ IV ×3 (03:40→19:22)
[2018-10-24 03:48] LABS: ADD MAN DIFF? NO
[2018-10-24 03:59] LABS: ALANINE AMINOTRANSFERASE 51 IU/L (13-69); ALBUMIN/GLOBULIN RATIO 1.42; ALKALINE PHOSPHATASE 73 IU/L (42-121); ANION GAP 12 (5-13); ASPARTATE AMINO TRANSFERASE 40 IU/L (15-46); BILIRUBIN,INDIRECT 0.8 mg/dl (0-1.1); BILIRUBIN,TOTAL 0.8 mg/dl (0.2-1.3); BLOOD UREA NITROGEN 5 mg/dl (7-20); CALCIUM 8.7 mg/dl (8.4-10.2); CARBON DIOXIDE 27 mmol/L (21-31); CHLORIDE 103 mmol/L (97-110); CREATININE 0.52 mg/dl (0.61-1.24); Estimated GFR > 60 mL/min (>60); GLUCOSE 92 mg/dl (70-220); MAGNESIUM 1.8 mg/dl (1.7-2.5); POTASSIUM 3.8 mmol/L (3.5-5.1); SODIUM 142 mmol/L (135-144); TOTAL PROTEIN 6.8 g/dl (6.1-8.1)
[2018-10-24 04:09] LABS: BASOPHILS % 0.2 % (0.0-2.0); EOSINOPHILS % 0.2 % (0.0-7.0); HEMATOCRIT 46.4 % (42.0-52.0); HEMOGLOBIN 15.7 g/dl (14.0-18.0); LYMPHOCYTES # 1.9 10^3/ul (0.8-2.9); LYMPHOCYTES % 41.7 % (15.0-51.0); MEAN CORPUSCULAR HEMOGLOBIN 33.8 pg (29.0-33.0); MEAN CORPUSCULAR HGB CONC 33.8 g/dl (32.0-37.0); MEAN PLATELET VOLUME 11.3 fl (7.4-10.4); MONOCYTE # 0.3 10^3/ul (0.3-0.9); MONOCYTES % 5.6 % (0.0-11.0); NEUTROPHIL # 2.3 10^3/ul (1.6-7.5); NEUTROPHILS % 52.1 % (39.0-77.0); PLATELET COUNT 198 10^3/UL (140-415); RED BLOOD COUNT 4.64 10^6/ul (4.70-6.10); RED CELL DISTRIBUTION WIDTH 12.7 % (11.5-14.5)
[2018-10-24 04:09] LABS: WHITE BLOOD COUNT 4.5 10^3/ul (4.8-10.8)
[2018-10-24] MEDS: LIDOCAINE/MYLANTA 40 ML BTL PO ×2 (04:52→04:55)
[2018-10-24] MEDS: FAMOTIDINE 20 MG INJ IV (04:52)
[2018-10-24] MEDS ORDERED: FAMOTIDINE 20 MG INJ IV (09:00)
[2018-10-24] MEDS: MULTIVITAMINS 10 ML, THIAMINE 100 MG, FOLIC ACID 1 MG in SOD CHLORIDE 0.9% 1,000 ML IVPB (09:02)
[2018-10-24] MEDS: CHLORDIAZEPOXIDE 25 MG CAP PO (09:02)
[2018-10-24] MEDS: PANTOPRAZOLE (EC) 40 MG TAB PO (09:15)
[2018-10-24 09:28] LABS: LIPASE 58 U/L (23-300)
[2018-10-24] MEDS: ACETAMINOPHEN 325 MG TAB PO (10:47)
[2018-10-24] MEDS ORDERED: LORAZEPAM 2 MG INJ IV (11:00)
[2018-10-24] MEDS: PANTOPRAZOLE IV 80 MG in SOD CHLORIDE 0.9% 100 ML IV ×3 (11:34→23:23)
[2018-10-24] MEDS: PANTOPRAZOLE IV 80 MG in SOD CHLORIDE 0.9% 100 ML IVPB (11:35)
[2018-10-24] MEDS: DIAZEPAM 10 MG/2 ML SYG IV ×3 (12:42→23:24)
[2018-10-24] MEDS: SUCRALFATE (100 MG/ML) 10ML CUP PO ×3 (12:43→22:18)
[2018-10-24] MEDS: ONDANSETRON 4 MG INJ IV (22:20)
[2018-10-25] MEDS: DEXTROSE 5%-0.45% NACL 1,000 ML IV ×2 (03:46→07:32)
[2018-10-25] MEDS: ACETAMINOPHEN 325 MG TAB PO (05:25)
[2018-10-25 06:13] LABS: ADD MAN DIFF? NO
[2018-10-25 06:24] LABS: WHITE BLOOD COUNT 5.9 10^3/ul (4.8-10.8)
[2018-10-25 06:24] LABS: BASOPHILS % 0.2 % (0.0-2.0); EOSINOPHILS % 0.3 % (0.0-7.0); HEMATOCRIT 46.5 % (42.0-52.0); HEMOGLOBIN 15.8 g/dl (14.0-18.0); LYMPHOCYTES # 1.7 10^3/ul (0.8-2.9); LYMPHOCYTES % 29.4 % (15.0-51.0); MEAN CORPUSCULAR HEMOGLOBIN 33.8 pg (29.0-33.0); MEAN CORPUSCULAR VOLUME 99.6 fl (82.0-101.0); MEAN PLATELET VOLUME 11.4 fl (7.4-10.4); MONOCYTE # 0.5 10^3/ul (0.3-0.9); MONOCYTES % 9.2 % (0.0-11.0); NEUTROPHIL # 3.5 10^3/ul (1.6-7.5); NEUTROPHILS % 60.6 % (39.0-77.0); PLATELET COUNT 191 10^3/UL (140-415); RED BLOOD COUNT 4.67 10^6/ul (4.70-6.10)
[2018-10-25] MEDS: PANTOPRAZOLE IV 80 MG in SOD CHLORIDE 0.9% 100 ML IV (07:00)
[2018-10-25 07:29] LABS: ALANINE AMINOTRANSFERASE 51 IU/L (13-69); ALBUMIN/GLOBULIN RATIO 1.37; ALKALINE PHOSPHATASE 67 IU/L (42-121); ANION GAP 8 (5-13); ASPARTATE AMINO TRANSFERASE 35 IU/L (15-46); BILIRUBIN,INDIRECT 2.8 mg/dl (0-1.1); BILIRUBIN,TOTAL 2.8 mg/dl (0.2-1.3); BLOOD UREA NITROGEN 4 mg/dl (7-20); CALCIUM 9.3 mg/dl (8.4-10.2); CARBON DIOXIDE 30 mmol/L (21-31); CHLORIDE 99 mmol/L (97-110); CREATININE 0.64 mg/dl (0.61-1.24); Estimated GFR > 60 mL/min (>60); GLUCOSE 83 mg/dl (70-220); MAGNESIUM 1.8 mg/dl (1.7-2.5); SODIUM 137 mmol/L (135-144); TOTAL PROTEIN 6.9 g/dl (6.1-8.1)
[2018-10-25 07:39] LABS: POTASSIUM 2.9 mmol/L (3.5-5.1)
[2018-10-25] MEDS: MULTIVITAMINS 10 ML, THIAMINE 100 MG, FOLIC ACID 1 MG in SOD CHLORIDE 0.9% 1,000 ML IVPB (09:00)
[2018-10-25] MEDS ORDERED: DIAZEPAM 5 MG TAB PO (09:30)
[2018-10-25] MEDS: SUCRALFATE (100 MG/ML) 10ML CUP PO (09:53)
[2018-10-25] MEDS: CHLORDIAZEPOXIDE 25 MG CAP PO (09:53)
[2018-10-25] MEDS: POTASSIUM CHLORIDE (SR) 20 MEQ TAB PO (09:53)
[2018-10-25] MEDS ORDERED: CHLORDIAZEPOXIDE 25 MG CAP PO (13:00)
== END 2018-10-25 11:53 | disposition left against medical advice (07) | DRG 894 ==
LOC: E/R 01:08 → 6WM 02:45
DX: F10.239 Alcohol dependence with withdrawal, unspecified (principal); K92.1 Melena; F17.210 Nicotine dependence, cigarettes, uncomplicated; K76.0 Fatty (change of) liver, not elsewhere classified; K70.9 Alcoholic liver disease, unspecified; K70.0 Alcoholic fatty liver
CPT/HCPCS: 74176; 80053; 83690; 83735; 85025; 87081; 99285-25

== ENCOUNTER 2018-10-29 23:14 | Emergency (ER) | payer OTHER ==
[2018-10-29] MEDS: SOD CHLORIDE 0.9% 1,000 ML IV (23:45)
[2018-10-30] MEDS: LORAZEPAM 1 MG TAB PO (00:06)
== END 2018-10-30 00:34 | disposition home or self-care (01) ==
LOC: E/R 10-30 00:34
DX: F10.230 Alcohol dependence with withdrawal, uncomplicated (principal)
CPT/HCPCS: 99284-25; J7030